=== PATIENT | female | born 1935 | race African-American/Black ===

== ENCOUNTER 2016-10-06 11:11 | Emergency (ER) | payer MEDICARE, OTHER ==
[~2016-10-06] VITALS: Ht 160 cm; Wt 65.9 kg
[2016-10-06 11:13] VITALS: BP 159/80; PULSE 92; RESP 16; TEMP 97.7; O2SAT 96
[2016-10-06 17:28] VITALS: BP 183/88; PULSE 86; RESP 17; O2SAT 98
[2016-10-06] MEDS ORDERED: HYDR-4107 PO (17:40)
[2016-10-06] MEDS ORDERED: ACETA500 PO (17:40)
[2016-10-06] MEDS ORDERED: BRIN1SUS2 EACH EYE (17:40)
[2016-10-06] MEDS ORDERED: LATA0.002 EACH EYE (17:40)
[2016-10-06] MEDS ORDERED: OMNI1SUS LEFT EYE (17:40)
--- NOTE | 2016-10-06 17:54 | PD ---
HPI Chief Complaint: Eye Problems/Injury Time Seen by Provider: 17:30 Travel History International Travel<30 days: No Contact w/Intl Traveler<30days: No Traveled to known affect area: No History of Present Illness HPI 81-year-old female came to the emergency room with history of left eye pain. Patient had a corneal graft done to her left eye by an cement railroad car loader from [place]. The first time the graft did not take so she had a second graft done. She has been having a lot of trouble with the second graft and that eye. She went to see her cement railroad car loader this morning who is Dr. Howard. After she was examined by the cement railroad car loader she was asked to come to the emergency room with recommendation on her prescription. However patient was in the waiting room for 6 hours before coming in to the ER. After I saw her and read the recommendation I put a call out for the cement railroad car loader. Patient says she cannot see anything from the left eye except for light and some hand movement. Her eye is painful. Vital signs are otherwise stable. [facility] Past Medical History Narrative Medical List of her past medical history as reviewed from the nursing note. Diminished Hearing: No Glaucoma: Yes Hypertension: Yes Tetanus Vaccination: Unknown Influenza Vaccination: No ?: Not Past Surgical History Appendectomy: Yes (1950) Eye Surgery: Yes (L EYE IMPLANT) Social History Alcohol Use: No Tobacco Use: No Allergies-Medications (Allergen,Severity, Reaction): Coded Allergies: Shellfish (Verified Allergy, Intermediate, VOMITING, 10/06/16) Comments List of allergies reviewed from the nursing note. Reported Meds & Prescriptions Reported Meds & Active Scripts Active Reported Simbrinza Opth Drops (Brinzolamide-Brimonidine Opth Drops) 1-0.2% Susp 1 Drop EACH EYE Q8HR Omnipred Opth Drops (Prednisolone Acetate Opth Drops) 1% Susp 1 Drop LEFT EYE TID Latanoprost Opth Drops (Latanoprost) 0.005% Drops 1 Drop EACH EYE HS Refrigerate until opened. Hydrocodone-Acetaminophen 5-300 Mg Tab 1 Tab PO Q4H PRN Diamox Sequels ER 12 HR (Acetazolamide) 500 Mg Cap 500 Mg PO Q12HR Narrative Medication List of her home medications reviewed from the nursing note. Review of Systems Except as stated in HPI: all other systems reviewed are Neg Physical Exam Narrative GENERAL: Awake, alert, elderly, moderate distress SKIN: Warm and dry. HEAD: Atraumatic. Normocephalic. EYES: Right I has clear cornea with iridectomy and positive light reflex. However the left eye cornea is cloudy. There is circumferential suturing noticed. The anterior chamber has varying depth with your regular and densities noticed. The scleral conjunctiva is highly injected. The left eye is vision to light perception and hand movement only. ENT: No nasal bleeding or discharge. Mucous membranes pink and moist. NECK: Trachea midline. No JVD. CARDIOVASCULAR: Regular rate and rhythm. No murmur appreciated. RESPIRATORY: No accessory muscle use. Clear to auscultation. Breath sounds equal bilaterally. GASTROINTESTINAL: Abdomen soft, non-tender, nondistended. Hepatic and splenic margins not palpable. MUSCULOSKELETAL: No obvious deformities. No clubbing. No cyanosis. No edema. NEUROLOGICAL: Awake and alert. No obvious cranial nerve deficits. Motor grossly within normal limits. Normal speech. PSYCHIATRIC: Appropriate mood and affect; insight and judgment normal. Data Data Last Documented VS Vital Signs Date Time Temp Pulse Resp B/P Pulse Ox O2 Delivery O2 Flow Rate FiO2 10/06/16 18:16 79 17 157/73 98 Room Air 10/06/16 11:13 97.7 Orders Mannitol Inj (Osmitrol Inj) (10/06/16 18:45) [facility] Medical Decision Making Medical Screen Exam Complete: Yes Emergency Medical Condition: Yes Medical Record Reviewed: Yes Differential Diagnosis Corneal graft rejection, endophthalmitis Narrative Course 6:15 PM I have ordered the mannitol IV as per the written recommendation by the cement railroad car loader. I put a call out for the cement railroad car loader. Awaiting for the cement railroad car loader to call back at this point. 7:07 PM I discussed the case with patient's cement railroad car loader Dr. Howard on the phone who wanted the patient to just get the mannitol and then be discharged home. She would follow-up with her in her office on Thursday. I have explained this plan to the patient and her family in the room and they understand. Procedures EKG Prior to Arrival: No Diagnosis Primary Impression: Corneal graft malfunction Qualified Code: T85.398A - Corneal graft malfunction, initial encounter Referrals: Shahnaz Howard MD 2 days Additional Instructions: Please return to the ER if the condition worsens or any other new concerns. Otherwise follow-up with your health program specialist Dr. Howard on Thursday. Med/Other Pt SpecificInfo: No Change to Meds Disposition: 01 DISCHARGE HOME Condition: Stable Kimberly Pearson MD Oct 06, 2016 17:54
[2016-10-06] MEDS ORDERED: MANNITOL 12.5 GM/50 ML VIAL IV ONE (18:00)
[2016-10-06 18:16] VITALS: BP 157/73; PULSE 79; RESP 17; O2SAT 98
[2016-10-06] MEDS ORDERED: MANNITOL INJ 500 ML IV SCH (18:45)
== END 2016-10-06 22:09 | disposition home or self-care (01) ==
LOC: NEPE 11:11
DX: T85.398A Other mechanical complication of other ocular prosthetic devices, implants and grafts, initial encounter (principal); T85.848A Pain due to other internal prosthetic devices, implants and grafts, initial encounter; I10 Essential (primary) hypertension
CPT/HCPCS: 96374